=== PATIENT | female | born 1955 | race Caucasian/White ===

== ENCOUNTER 2016-10-14 06:03 | Day surgery (SDC) | payer BC ==
[~2016-10-14 06:03] MED LIST: Lactated Ringers 1,000 ML IV SCH
[2016-10-14] MEDS ORDERED: DIPRIVAN 200 MG/20 ML IV ONE (06:04)
[2016-10-14] MEDS ORDERED: Versed 2 MG/2 ML Injection IV ONE (06:04)
[2016-10-14 06:22] VITALS: O2SAT 98
[2016-10-14 08:21] VITALS: BP 122/58; PULSE 58
--- NOTE | 2016-10-14 08:42 | OP ---
SURGERY DATE/TIME: 10/14/2016 0658 PREOPERATIVE DIAGNOSIS: Screening colonoscopy. POSTOPERATIVE DIAGNOSES: 1) Normal colon. 2) External hemorrhoids. PROCEDURE: Colonoscopy. SURGEON: Austin Kurtz M.D. ANESTHESIA: MAC by Poli Luna CRNA. ESTIMATED BLOOD LOSS: None. SPECIMENS: None. DESCRIPTION OF PROCEDURE: After informed written consent was obtained, the patient was taken to the endoscopy suite. She underwent monitored anesthesia and digital rectal exam showed external hemorrhoids with no internal lesions and normal sphincter tone. The scope was inserted into the rectum and sequentially the entire colonic mucosa was traversed. The level of cecum was reached and verified with direct visualization of ileocecal valve. Upon withdrawal careful mucosal inspection revealed no gross abnormalities. Prep was noted to be fair. Prior to withdrawal retroflexion was performed and showed no internal lesions. The scope was removed and the patient was transferred to the recovery room in excellent condition.
== END 2016-10-14 08:31 | disposition home or self-care (01) ==
LOC: SDC 06:03
PROVIDERS: ATTEND Family Medicine
PROC: 0DJD8ZZ Inspection of Lower Intestinal Tract, Via Natural or Artificial Opening Endoscopic (ICD-10-PCS; principal; 2016-10-14)
DX: Z12.11 Encounter for screening for malignant neoplasm of colon (principal); K64.4 Residual hemorrhoidal skin tags
CPT/HCPCS: 00810; G0121; J2250; J2704

== ENCOUNTER 2020-01-16 18:18 | Emergency (ER) | payer OTHER ==
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
[2020-01-16 20:30] VITALS: BP 171/73; PULSE 61; O2SAT 97
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
== END 2020-01-16 20:33 | disposition home or self-care (01) ==
LOC: ED 18:18
DX: S09.90XA Unspecified injury of head, initial encounter (principal); V89.2XXA Person injured in unspecified motor-vehicle accident, traffic, initial encounter; Y92.89 Other specified places as the place of occurrence of the external cause; Y99.8 Other external cause status; Z79.899 Other long term (current) drug therapy; F41.9 Anxiety disorder, unspecified; F32.9 Major depressive disorder, single episode, unspecified
CPT/HCPCS: 70450; 99284

== ENCOUNTER 2020-06-14 16:26 | Emergency (ER) | payer OTHER ==
--- NOTE | 2020-06-14 16:36 | ERPHSYRPT ---
- History of Present Illness Source: patient, family Exam Limitations: no limitations Patient Subjective Stated Complaint: patient states she was in [place] and her R side "went numb and throat went numb and couldnt breathe." states this has happened before and she was "having little seizures and little strokes" which was 3 years ago and has not had them since Triage Nursing Assessment: Patient presents to ER having weakness on the R side. Patient is pale and states she is in pain in her throat and jaw rating it a 5. Timing/Duration: today Severity: mild Character of Deficits: none Deficits: no difficulties Baseline/Normal Cognition: alert oriented x 3 Current Cognition: alert oriented x 3 Baseline Gait: walks w/o assistance Associated Symptoms: paresthesia (Right side briefly. Resolved prior to arrival to the emergency department) Hx Tetanus, Diphtheria Vaccination/Date Given: Yes Hx Influenza Vaccination/Date Given: Yes Hx Pneumococcal Vaccination/Date Given: No - History of Present Illness Time Seen by Provider: 06/14/20 16:36 Physician History: This is a 64-year-old white female who presents with sudden onset of right side numbness including her throat. She felt anxious and briefly felt as though she could not breathe because of the numbness in her throat. This resolved suddenly. However she still felt that she had generalized weakness but the right side was worse than the left. Patient has had a history of old bilateral lacunar infarcts based on a CAT scan that was done on 01/16/2020. Patient also had a similar episode 3 years ago and had an extensive work-up at [facility] and, per patient report, nothing was found as an underlying cause. Patient has chronic visual problems including seeing spots which she sees today and has been told that she may have glaucoma. She has an appointment to see an manager occupational. Denies headache. She denies head injury. Patient has never been diagnosed with hypertension although in looking back at old chart she has had blood pressures that are elevated. (REECE ANDREWS) Allergies/Adverse Reactions: No Known Drug Allergies Allergy (Verified 01/16/20 18:58) Home Medications: Duloxetine HCl 30 mg [Cymbalta 30 MG Capsule] 60 mg PO DAILY 09/16/13 [History] Cetirizine HCl [Zyrtec] 10 mg PO HS 05/19/14 [History] Fexofenadine/Pseudoephedrine [Ryann-D 24 Hour Tablet] 1 each PO DAILY 10/13/16 [History] Metformin HCl 500 mg [Glucophage 500 MG] 500 mg PO DAILY 10/13/16 [History] Triamcinolone Acetonide [Nasacort] 10.8 ml NS DAILY 10/13/16 [History] Montelukast Sodium 10 mg [Singulair 10 MG] 10 mg PO 06/14/20 [History] Tizanidine HCl 4 mg [Zanaflex 4 MG] 4 mg PO TID 06/14/20 [History] Travel Risk - International Travel Have you traveled outside of the country in past 3 weeks: No - Coronavirus Screening Are you exhibiting any of the following symptoms?: No Close contact with a COVID-19 positive Pt in past 14-21 Days: No - Vaccine Status Have you recieved a Covid-19 vaccination: No - Review of Systems Constitutional: Weakness (Generalized but also right side worse than left) Eyes: No Symptoms Ears, Nose, & Throat: Ear Pain (Right) Respiratory: No Symptoms Cardiac: No Symptoms Abdominal/Gastrointestinal: No Symptoms Genitourinary Symptoms: No Symptoms Musculoskeletal: No Symptoms Skin: No Symptoms Neurological: No Symptoms Psychological: No Symptoms Endocrine: No Symptoms Hematologic/Lymphatic: No Symptoms Immunological/Allergic: No Symptoms All Other Systems: Reviewed and Negative - Past Medical History Pertinent Past Medical History: Yes Neurological History: No Pertinent History ENT History: No Pertinent History Cardiac History: Arrhythmia Respiratory History: No Pertinent History Endocrine Medical History: Diabetes Type II Musculoskeletal History: Arthritis, Degenerative Disk Disease GI Medical History: GERD, Gallbladder Disease History: No Pertinent History Psycho-Social History: Anxiety, Depression Female Reproductive Disorders: No Pertinent History Other Medical History: Possible old CVA reported but states that it was never documented. - Past Surgical History Past Surgical History: Yes Neuro Surgical History: No Pertinent History Cardiac: No Pertinent History Respiratory: No Pertinent History Gastrointestinal: Cholecystectomy Genitourinary: No Pertinent History Musculoskeletal: Orthopedic Surgery Female Surgical History: Hysterectomy, Tubal Ligation, Lumpectomy Other Surgical History: eye surgery lasik bilat. heel spurs. bilat rotator cuff shoulders. L x2 - Social History Smoking Status: Never smoker Exposure to second hand smoke: No Drug Use: none Patient Lives Alone: No - Female History Hx Now: No - [place] Coma Scale Best Eye Response ([place]): (4) open spontaneously Best Verbal Response ([place]): (5) oriented Best Motor Response ([place]): (6) obeys commands [place] Total: 15 - Physical Exam General Appearance: no apparent distress, alert, anxiety, obese Eye Exam: bilateral eye: normal inspection, PERRL, EOMI Ears, Nose, Throat Exam: normal ENT inspection, TMs normal, pharynx normal, moist mucous membranes Neck Exam: normal inspection, non-tender, supple, full range of motion Respiratory: normal breath sounds, lungs clear, airway intact, No chest tenderness, No respiratory distress Cardiovascular: regular rate/rhythm, normal heart sounds, normal peripheral pulses Gastrointestinal: soft, normal bowel sounds, No tenderness Pelvic Exam: not done Rectal Exam: not done Back Exam: normal inspection, normal range of motion, No CVA tenderness, No vertebral tenderness Extremity Exam: normal inspection, normal range of motion, pelvis stable Mental Status: alert, oriented x 3, 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 Exam: normal hearing, normal speech, PERRL, tongue midline Coordination/Gait: normal finger to nose, normal gait, normal cerebellar function Motor/Sensory: no motor deficit, no sensory deficit Skin Exam: normal color, warm, dry SpO2 Interpretation: normal SpO2: 100 O2 Delivery: Room Air - Nursing Vital Signs Nursing Vital Signs: Initial Vital Signs Temperature 98.2 F 06/14/20 16:28 Pulse Rate 79 06/14/20 16:28 Respiratory Rate 24 06/14/20 16:28 Blood Pressure 182/111 06/14/20 16:28 O2 Sat by Pulse Oximetry 100 06/14/20 16:28 Pain Scale Pain Intensity 3 - Course Nursing assessment & vital signs reviewed: Yes EKG Interpreted by Me: RATE (78), Sinus Rhythm, NORMAL AXIS, NORMAL INTERVALS, NORMAL QRS, NORMAL ST-T, Other (No acute ischemic changes on today's EKG. There are no comparison EKGs available.) Ordered Tests: Active Orders 24 hr Category Date Time Status Outer Diameter Technician STAT Care 06/14/20 16:38 Active EKG-ER Only STAT Care 06/14/20 16:38 Active IV Insertion STAT Care 06/14/20 16:37 Active NPO (ED) STAT Care 06/14/20 16:52 Active POCT Glucose Check STAT Care 06/14/20 16:38 Active Pulse Oximetry (ED) STAT Care 06/14/20 16:52 Active HEAD WITHOUT CONTRAST [CT] Stat Exams 06/14/20 16:35 Taken BLOOD CULTURE Stat Lab 06/14/20 17:15 Received CBC W DIFF Stat Lab 06/14/20 16:55 Completed CMP Stat Lab 06/14/20 16:55 Completed PROTIME WITH INR Stat Lab 06/14/20 16:55 Completed TROPONIN Q3H Lab 06/14/20 16:55 Completed TROPONIN Q3H Lab 06/14/20 20:00 Ordered TROPONIN Q3H Lab 06/14/20 23:00 Ordered TROPONIN Q3H Lab 06/15/20 02:00 Ordered TROPONIN Q3H Lab 06/15/20 05:00 Ordered UA W/RFX UR CULTURE Stat Lab 06/14/20 18:12 Completed Medication Summary Generic Name Dose Route Start Last Admin Trade Name Freq PRN Reason Stop Dose Admin Sodium Chloride 1,000 mls @ 100 mls/hr 06/14/20 17:00 06/14/20 18:11 Sodium Chloride 0.9% 1000 Ml IV 07/14/20 16:59 100 mls/hr .Q10H MART Administration Discontinued Medications Generic Name Dose Route Start Last Admin Trade Name Freq PRN Reason Stop Dose Admin Clonidine 0.1 mg 06/14/20 18:52 06/14/20 19:15 Catapres 0.1 Mg PO 06/14/20 18:53 0.1 mg STAT ONE Administration Clonidine Confirm 06/14/20 19:10 Catapres 0.1 Mg Administered 06/14/20 19:11 Dose 0.1 mg .ROUTE .STK-MED ONE Lab/Rad Data: Laboratory Result Diagrams 06/14/20 16:55 06/14/20 16:55 Laboratory Results 06/14/20 06/14/20 06/14/20 Range/Units 18:12 17:00 16:55 WBC (4.0-10.5) K/mm3 RBC (4.1-5.4) M/mm3 Hgb (12.0-16.0) gm/dl Hct (35-47) % MCV (78-100) fl MCH (26-32) pg MCHC (32-36) g/dl RDW (11.5-14.0) % Plt Count (150-450) K/mm3 MPV (7.5-11.0) fl Gran % (36.0-66.0) % Eos # (Auto) (0-0.5) Absolute Lymphs (auto) (1.0-4.6) Absolute Monos (auto) (0.0-1.3) Lymphocytes % (24.0-44.0) % Monocytes % (0.0-12.0) % Eosinophils % (0.00-5.0) % Basophils % (0.0-0.4) % Absolute Granulocytes (1.4-6.9) Basophils # (0-0.4) PT (9.95-12.35) SECONDS INR (0.8-3.0) Sodium (137-145) mmol/L Potassium (3.5-5.1) mmol/L Chloride (98-107) mmol/L Carbon Dioxide (22-30) mmol/L Anion Gap (5-15) MEQ/L BUN (7-17) mg/dL Creatinine (0.52-1.04) mg/dL Estimated GFR ML/MIN Glucose (74-106) mg/dL Calcium (8.4-10.2) mg/dL Total Bilirubin (0.2-1.3) mg/dL AST (14-36) U/L ALT (0-35) U/L Alkaline Phosphatase (38-126) U/L Ammonia < 9 L (9-30) umol/L Troponin I < 0.012 (0.000-0.034) ng/mL Serum Total Protein (6.3-8.2) g/dL Albumin (3.5-5.0) g/dL Urine Color YELLOW (YELLOW) Urine Appearance CLEAR (CLEAR) Urine pH 6.0 (5-6) Ur Specific Dalton 1.009 (1.005-1.025) Urine Protein NEGATIVE (Negative) Urine Ketones NEGATIVE (NEGATIVE) Urine Blood NEGATIVE (0-5) Malachi/ul Urine Nitrite NEGATIVE (NEGATIVE) Urine Bilirubin NEGATIVE (NEGATIVE) Urine Urobilinogen NEGATIVE (0-1) mg/dL Ur Leukocyte Esterase NEGATIVE (NEGATIVE) Urine WBC (Auto) NONE (0-5) /HPF Urine RBC (Auto) NONE (0-2) /HPF U Epithel Cells (Auto) NONE (FEW) /HPF Urine Bacteria (Auto) NONE (NEGATIVE) /HPF Urine Mucus (Auto) SLIGHT (NEGATIVE) /HPF Urine Culture Reflexed NO (NO) Urine Glucose NEGATIVE (NEGATIVE) mg/dL 06/14/20 06/14/20 06/14/20 Range/Units 16:55 16:55 16:55 WBC 6.6 (4.0-10.5) K/mm3 RBC 4.41 (4.1-5.4) M/mm3 Hgb 11.4 L (12.0-16.0) gm/dl Hct 38.1 (35-47) % MCV 86.4 (78-100) fl MCH 25.9 L (26-32) pg MCHC 29.9 L (32-36) g/dl RDW 15.4 H (11.5-14.0) % Plt Count 352 (150-450) K/mm3 MPV 10.2 (7.5-11.0) fl Gran % 48.8 (36.0-66.0) % Eos # (Auto) 0.50 (0-0.5) Absolute Lymphs (auto) 2.34 (1.0-4.6) Absolute Monos (auto) 0.52 (0.0-1.3) Lymphocytes % 35.4 (24.0-44.0) % Monocytes % 7.9 (0.0-12.0) % Eosinophils % 7.6 H (0.00-5.0) % Basophils % 0.3 (0.0-0.4) % Absolute Granulocytes 3.23 (1.4-6.9) Basophils # 0.02 (0-0.4) PT 12.1 (9.95-12.35) SECONDS INR 1.07 (0.8-3.0) Sodium 141 (137-145) mmol/L Potassium 3.9 (3.5-5.1) mmol/L Chloride 104 (98-107) mmol/L Carbon Dioxide 29 (22-30) mmol/L Anion Gap 12.2 (5-15) MEQ/L BUN 9 (7-17) mg/dL Creatinine 1.18 H (0.52-1.04) mg/dL Estimated GFR 49.0 ML/MIN Glucose 122 H (74-106) mg/dL Calcium 9.9 (8.4-10.2) mg/dL Total Bilirubin 0.30 (0.2-1.3) mg/dL AST 28 (14-36) U/L ALT 16 (0-35) U/L Alkaline Phosphatase 91 (38-126) U/L Ammonia (9-30) umol/L Troponin I (0.000-0.034) ng/mL Serum Total Protein 6.9 (6.3-8.2) g/dL Albumin 4.2 (3.5-5.0) g/dL Urine Color (YELLOW) Urine Appearance (CLEAR) Urine pH (5-6) Ur Specific Dalton (1.005-1.025) Urine Protein (Negative) Urine Ketones (NEGATIVE) Urine Blood (0-5) Malachi/ul Urine Nitrite (NEGATIVE) Urine Bilirubin (NEGATIVE) Urine Urobilinogen (0-1) mg/dL Ur Leukocyte Esterase (NEGATIVE) Urine WBC (Auto) (0-5) /HPF Urine RBC (Auto) (0-2) /HPF U Epithel Cells (Auto) (FEW) /HPF Urine Bacteria (Auto) (NEGATIVE) /HPF Urine Mucus (Auto) (NEGATIVE) /HPF Urine Culture Reflexed (NO) Urine Glucose (NEGATIVE) mg/dL - Progress Progress: improved, re-examined Counseled pt/family regarding: lab results, diagnosis, need for follow-up, rad results - Progress Progress Note: 06/14/20 17:57 CAT scan of the head without contrast shows continued negative acute intracranial abnormality. Again, there is incidental bilateral basal ganglia lacunar infarcts when compared to CT scan of head dated 01/16/2020 06/14/20 19:00 I signed out this patient to Dr. Hardin at shift change. I reviewed the labs that are pending and he will follow up and make final disposition. And (REECE ANDREWS) - Departure Departure Disposition: Home Critical Care Time: No - Departure Clinical Impression: Weakness, Hypertension Condition: Stable Referrals: KIMBERLY CARR NP [Primary Care Provider] - Additional Instructions: Take your medication as prescribed. Keep a daily log (3 times a day) of your blood pressure. Call your primary care physician on 06/17/2020 to discuss further management of your blood pressure. Make them aware that you are taking hydrochlorothiazide 25 mg prescription 1 time a day that you received from the emergency department. Return to the emergency department if your symptoms recur. Prescriptions: Hydrochlorothiazide 25 mg [hydroDIURIL 25 MG] 25 mg PO DAILY #10 tablet
[2020-06-14 16:58] LABS: Absolute Neutrophil Ct (ANC) 3.23 (1.4-6.9); BASOPHIL % 0.3 % (0.0-0.4); Basophil (Absolute #) 0.02 (0-0.4); Eosinophil % 7.6 % (0.00-5.0); Hematocrit 38.1 % (35-47); Hemoglobin 11.4 gm/dl (12.0-16.0); Lymphocyte (Absolute #) 2.34 (1.0-4.6); Lymphocytes % 35.4 % (24.0-44.0); Mean Cell Volume 86.4 fl (78-100); Mean Corpuscular Hemoglobin 25.9 pg (26-32); Mean Corpuscular Hgb Concent. 29.9 g/dl (32-36); Mean Platelet Volume 10.2 fl (7.5-11.0); Monocyte (Absolute #) 0.52 (0.0-1.3); Monocytes % 7.9 % (0.0-12.0); Neutrophil % 48.8 % (36.0-66.0); Platelet Count 352 K/mm3 (150-450); Red Blood Count 4.41 M/mm3 (4.1-5.4); Red Cell Distribution Width 15.4 % (11.5-14.0); White Blood Count 6.6 K/mm3 (4.0-10.5)
[2020-06-14 17:00] LABS: INR 1.07 (0.8-3.0); PROTIME 12.1 SECONDS (9.95-12.35)
[2020-06-14] MEDS ORDERED: Sodium Chloride 0.9% 1000 ML 1,000 ML IV SCH (17:00)
[2020-06-14 17:05] LABS: ALBUMIN 4.2 g/dL (3.5-5.0); ANION GAP 12.2 MEQ/L (5-15); BILIRUBIN,TOTAL 0.3 mg/dL (0.2-1.3); Calcium 9.9 mg/dL (8.4-10.2); Creatinine 1 1.18 mg/dL (0.52-1.04); Potassium 3.9 mmol/L (3.5-5.1); Total Protein 6.9 g/dL (6.3-8.2)
[2020-06-14] MEDS ORDERED: Sodium Chloride 0.9% 1000 ML 1,000 ML ONE (18:11)
[2020-06-14] MEDS ORDERED: Catapres 0.1 MG PO ONE (18:52)
[2020-06-14] MEDS ORDERED: Catapres 0.1 MG ONE (19:10)
[2020-06-14 19:17] LABS: Appearance CLEAR (CLEAR); Bilirubin NEGATIVE (NEGATIVE); Blood NEGATIVE Ery/ul (0-5); Glucose NEGATIVE (NEGATIVE); Ketones NEGATIVE (NEGATIVE); Leukocyte Esterase NEGATIVE (NEGATIVE); Mucus SLIGHT /HPF (NEGATIVE); Nitrite NEGATIVE (NEGATIVE); Protein,Urine Dip NEGATIVE (Negative); Specific Gravity 1.009 (1.005-1.025); Urobilinogen NEGATIVE mg/dL (0-1)
[2020-06-14 19:51] VITALS: BP 169/81; PULSE 76; O2SAT 97
--- NOTE | 2020-06-14 23:04 | XRAY ---
Indication: Right-sided weakness. Stroke. History of TIAs. Multiple contiguous axial images obtained through the head without contrast. Comparison: January 16, 2020. Ventriculosulcal pattern remains symmetric. Stable tiny bilateral basal ganglia remote lacunar infarcts. No acute intracranial hemorrhage, abnormal extra-axial fluid collection, or mass effect. Fourth ventricle is midline without hydrocephalus. Eli-white matter differentiation preserved. Bony calvarium intact. Visualized paranasal sinuses and mastoid air cells are clear. Impression: Stable tiny bilateral basal ganglia remote lacunar infarcts. No new or acute intracranial abnormalities.
== END 2020-06-14 19:54 | disposition home or self-care (01) ==
LOC: ED 16:26
DX: R53.1 Weakness (principal); I10 Essential (primary) hypertension; R20.0 Anesthesia of skin; Z79.899 Other long term (current) drug therapy; E11.9 Type 2 diabetes mellitus without complications; Z79.4 Long term (current) use of insulin; K21.9 Gastro-esophageal reflux disease without esophagitis; Z86.73 Personal history of transient ischemic attack (TIA), and cerebral infarction without residual deficits; Z87.898 Personal history of other specified conditions
CPT/HCPCS: 36000; 36415; 70450; 80053; 81001; 82140; 84484; 85025; 85610; 87040; 93005; 93041; 94760; 96360; 99284; A9270-GY

== ENCOUNTER 2021-04-04 14:08 | Emergency (ER) | payer MEDICARE, OTHER ==
--- NOTE | 2021-04-04 14:10 | ERPHSYRPT ---
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 She states that it radiates to the left shoulder then stops, into her back then stops then it radiates up into the neck then radiates into the epigastric area. She currently states that the pain is localized to the substernal, central area. The pain is much improved. Patient has no history of myocardial infarction. She has no known history of coronary artery disease. She states she is under a lot of stress at this time. She is a [id number] diabetic with gastroesophageal reflux disease and degenerative disc disease. Also, she has a history of anxiety. She thinks this is more of an anxiety and stress related issue but because of the sudden onset of the pain she thought she would come in and be evaluated. Timing/Duration: today Activities at Onset: none Quality: tightness Location: substernal, central Chest Pain Radiation: neck, arm, back Severity of Pain-Max: moderate Severity of Pain-Current: mild Modifying Factors: Improves With: nothing Associated Symptoms: denies symptoms Prior Chest Pain/Cardiac Workup: no prior chest pain, no prior cardiac workup Nitro Today/Relief: no nitro taken today Aspirin Treatment Today: 81 mg x 4, provided by ED Allergies/Adverse Reactions: No Known Drug Allergies Allergy (Verified 04/04/21 14:11) Home Medications: Duloxetine HCl 30 mg [Cymbalta 30 MG Capsule] 60 mg PO DAILY 09/16/13 [History] Cetirizine HCl [Zyrtec] 10 mg PO HS 05/19/14 [History] Fexofenadine/Pseudoephedrine [Ryann-D 24 Hour Tablet] 1 each PO DAILY 10/13/16 [History] Metformin HCl 500 mg [Glucophage 500 MG] 500 mg PO DAILY 10/13/16 [History] Triamcinolone Acetonide [Nasacort] 10.8 ml NS DAILY 10/13/16 [History] Montelukast Sodium 10 mg [Singulair 10 MG] 10 mg PO 06/14/20 [History] Tizanidine HCl 4 mg [Zanaflex 4 MG] 4 mg PO TID 06/14/20 [History] Hx Tetanus, Diphtheria Vaccination/Date Given: Yes Hx Influenza Vaccination/Date Given: Yes Hx Pneumococcal Vaccination/Date Given: No Travel Risk - International Travel Have you traveled outside of the country in past 3 weeks: No - Coronavirus Screening Are you exhibiting any of the following symptoms?: No Close contact with a COVID-19 positive Pt in past 14-21 Days: No - Vaccine Status Have you recieved a Covid-19 vaccination: No - Review of Systems Constitutional: No Symptoms Eyes: No Symptoms Ears, Nose, & Throat: No Symptoms Respiratory: No Symptoms, Cough Cardiac: No Symptoms Abdominal/Gastrointestinal: No Symptoms Genitourinary Symptoms: No Symptoms Musculoskeletal: No Symptoms Skin: No Symptoms Neurological: No Symptoms Psychological: No Symptoms Endocrine: No Symptoms Hematologic/Lymphatic: No Symptoms Immunological/Allergic: No Symptoms All Other Systems: Reviewed and Negative - Past Medical History Pertinent Past Medical History: Yes Neurological History: No Pertinent History ENT History: No Pertinent History Cardiac History: No Pertinent History Respiratory History: No Pertinent History Endocrine Medical History: No Pertinent History Musculoskeletal History: Osteoarthritis GI Medical History: GERD, Gallbladder Disease History: No Pertinent History Psycho-Social History: Anxiety, Depression Female Reproductive Disorders: No Pertinent History Other Medical History: R SIDED BODY GOING NUMB. B SHOULDER SURGERY - Past Surgical History Past Surgical History: Yes Neuro Surgical History: No Pertinent History Cardiac: No Pertinent History Respiratory: No Pertinent History Gastrointestinal: Cholecystectomy Genitourinary: No Pertinent History Musculoskeletal: Orthopedic Surgery Female Surgical History: Hysterectomy, Tubal Ligation, Lumpectomy Other Surgical History: eye surgery lasik bilat. heel spurs. bilat rotator cuff shoulders. L x2 - Social History Smoking Status: Never smoker Exposure to second hand smoke: No Drug Use: none Patient Lives Alone: No - Nursing Vital Signs Nursing Vital Signs: Initial Vital Signs Temperature 97.8 F 04/04/21 14:11 Pulse Rate 75 04/04/21 14:11 Respiratory Rate 18 04/04/21 14:11 Blood Pressure 170/95 04/04/21 14:11 O2 Sat by Pulse Oximetry 100 04/04/21 14:11 Pain Scale Pain Intensity 4 - Physical Exam General Appearance: no apparent distress, alert, anxiety Eye Exam: PERRL/EOMI, eyes nml inspection Ears, Nose, Throat Exam: normal ENT inspection, moist mucous membranes Neck Exam: normal inspection, non-tender, supple, full range of motion Respiratory Exam: normal breath sounds, chest tenderness, lungs clear, airway intact, No respiratory distress Cardiovascular Exam: regular rate/rhythm, normal heart sounds, normal peripheral pulses Gastrointestinal/Abdomen Exam: soft, normal bowel sounds, No tenderness Pelvic Exam: not done Rectal Exam: not done Back Exam: normal inspection, normal range of motion, No CVA tenderness, No vertebral tenderness Extremity Exam: normal inspection, normal range of motion, pelvis stable Neurologic Exam: alert, oriented x 3, 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 There are no changes when compared to EKG dated 06/14/2020) Ordered Tests: Active Orders 24 hr Category Date Time Status EKG-ER Only STAT Care 04/04/21 14:23 Active IV Insertion STAT Care 04/04/21 14:23 Active Pulse Oximetry (ED) STAT Care 04/04/21 14:23 Active CHEST 1 VIEW (PORTABLE) Stat Exams 04/04/21 14:24 Completed CHEST WITH CONTRAST [CT] Stat Exams 04/04/21 15:18 Completed CBC W DIFF Stat Lab 04/04/21 14:21 Completed CMP Stat Lab 04/04/21 14:21 Completed D-DIMER QUANTITATIVE Stat Lab 04/04/21 14:21 Completed NT PRO BNP Stat Lab 04/04/21 14:21 Completed PROTIME WITH INR Stat Lab 04/04/21 14:21 Completed TROPONIN Q3H Lab 04/04/21 14:21 Completed TROPONIN Q3H Lab 04/04/21 17:30 Ordered TROPONIN Q3H Lab 04/04/21 20:30 Ordered TROPONIN Q3H Lab 04/04/21 23:30 Ordered TROPONIN Q3H Lab 04/05/21 02:30 Ordered Medication Summary Discontinued Medications Generic Name Dose Route Start Last Admin Trade Name Freq PRN Reason Stop Dose Admin Aspirin 324 mg 04/04/21 14:23 04/04/21 14:37 Aspirin 81 Mg Tab.Chew PO 04/04/21 14:24 324 mg STAT ONE Administration Aspirin Confirm 04/04/21 14:31 Aspirin 81 Mg Tab.Chew Administered 04/04/21 14:32 Dose 324 mg .ROUTE .STK-MED ONE Sodium Chloride 500 mls @ 500 mls/hr 04/04/21 15:18 04/04/21 15:27 Sodium Chloride 0.9% 500 Ml IV 04/04/21 16:17 500 mls/hr .Q1H ONE Administration Sodium Chloride Confirm 04/04/21 15:23 Sodium Chloride 0.9% 500 Ml Administered 04/04/21 15:24 Dose 500 mls @ ud IV .STK-MED ONE Lab/Rad Data: Laboratory Result Diagrams 04/04/21 14:21 04/04/21 14:21 Laboratory Results 04/04/21 04/04/21 04/04/21 Range/Units 14:21 14:21 14:21 WBC (4.0-10.5) K/mm3 RBC (4.1-5.4) M/mm3 Hgb (12.0-16.0) gm/dl Hct (35-47) % MCV (78-100) fl MCH (26-32) pg MCHC (32-36) g/dl RDW (11.5-14.0) % Plt Count (150-450) K/mm3 MPV (7.5-11.0) fl Gran % (36.0-66.0) % Eos # (Auto) (0-0.5) Absolute Lymphs (auto) (1.0-4.6) Absolute Monos (auto) (0.0-1.3) Lymphocytes % (24.0-44.0) % Monocytes % (0.0-12.0) % Eosinophils % (0.00-5.0) % Basophils % (0.0-0.4) % Absolute Granulocytes (1.4-6.9) Basophils # (0-0.4) PT 11.6 (9.4-12.5) SECONDS INR 0.98 (0.8-3.0) D-Dimer 1238 H* (215-500) ng/mL Sodium 139 (137-145) mmol/L Potassium 4.0 (3.5-5.1) mmol/L Chloride 103 (98-107) mmol/L Carbon Dioxide 26 (22-30) mmol/L Anion Gap 13.5 (5-15) MEQ/L BUN 8 (7-17) mg/dL Creatinine 1.13 H (0.52-1.04) mg/dL Estimated GFR 51.4 ML/MIN Glucose 92 (74-106) mg/dL Calcium 9.8 (8.4-10.2) mg/dL Total Bilirubin 0.70 (0.2-1.3) mg/dL AST 35 (14-36) U/L ALT 23 (0-35) U/L Alkaline Phosphatase 119 (38-126) U/L Troponin I < 0.012 (0.000-0.034) ng/mL NT-Pro-B Natriuret Pep 33.2 (0-900) pg/mL Serum Total Protein 7.4 (6.3-8.2) g/dL Albumin 4.4 (3.5-5.0) g/dL 04/04/21 Range/Units 14:21 WBC 5.7 (4.0-10.5) K/mm3 RBC 4.50 (4.1-5.4) M/mm3 Hgb 13.2 (12.0-16.0) gm/dl Hct 42.2 (35-47) % MCV 93.8 (78-100) fl MCH 29.3 (26-32) pg MCHC 31.3 L (32-36) g/dl RDW 14.6 H (11.5-14.0) % Plt Count 300 (150-450) K/mm3 MPV 10.9 (7.5-11.0) fl Gran % 47.6 (36.0-66.0) % Eos # (Auto) 0.25 (0-0.5) Absolute Lymphs (auto) 2.23 (1.0-4.6) Absolute Monos (auto) 0.48 (0.0-1.3) Lymphocytes % 39.1 (24.0-44.0) % Monocytes % 8.4 (0.0-12.0) % Eosinophils % 4.4 (0.00-5.0) % Basophils % 0.5 (0.0-0.4) % Absolute Granulocytes 2.71 (1.4-6.9) Basophils # 0.03 (0-0.4) PT (9.4-12.5) SECONDS INR (0.8-3.0) D-Dimer (215-500) ng/mL Sodium (137-145) mmol/L Potassium (3.5-5.1) mmol/L Chloride (98-107) mmol/L Carbon Dioxide (22-30) mmol/L Anion Gap (5-15) MEQ/L BUN (7-17) mg/dL Creatinine (0.52-1.04) mg/dL Estimated GFR ML/MIN Glucose (74-106) mg/dL Calcium (8.4-10.2) mg/dL Total Bilirubin (0.2-1.3) mg/dL AST (14-36) U/L ALT (0-35) U/L Alkaline Phosphatase (38-126) U/L Troponin I (0.000-0.034) ng/mL NT-Pro-B Natriuret Pep (0-900) pg/mL Serum Total Protein (6.3-8.2) g/dL Albumin (3.5-5.0) g/dL - Progress Progress: improved Air Movement: good Progress Note: 04/04/21 14:54 Chest x-ray shows no acute cardiopulmonary process. 04/04/21 16:[address] with contrast shows no pulmonary embolus. There is no acute cardiopulmonary process. 04/04/21 16:44 At the time of discharge patient has no chest pain and no shortness of breath. She desires to go home. Blood Culture(s) Obtained: No Antibiotics given: No Counseled pt/family regarding: lab results, diagnosis, need for follow-up, rad results - Departure Departure Disposition: Home Clinical Impression: Chest pain, non-cardiac Condition: Stable Critical Care Time: No Referrals: KIMBERLY CARR NP [NON-STAFF PHY W/O PRIVILEGES] - Follow up/PCP as directed Additional Instructions: Take all your medication as prescribed. Follow-up with your primary care physician for further evaluation and management including cardiac stress test if indicated or referral to tooth cutter spur.
[2021-04-04 14:21] VITALS: O2SAT 100
[2021-04-04] MEDS ORDERED: BABY ASPIRIN 81 MG CHEW PO ONE (14:23)
[2021-04-04] MEDS ORDERED: BABY ASPIRIN 81 MG CHEW ONE (14:31)
[2021-04-04 14:52] LABS: Absolute Neutrophil Ct (ANC) 2.71 (1.4-6.9); Basophil (Absolute #) 0.03 (0-0.4); Eosinophil % 4.4 % (0.00-5.0); Eosinophil (Absolute #) 0.25 (0-0.5); Hematocrit 42.2 % (35-47); Hemoglobin 13.2 gm/dl (12.0-16.0); Lymphocyte (Absolute #) 2.23 (1.0-4.6); Lymphocytes % 39.1 % (24.0-44.0); Mean Cell Volume 93.8 fl (78-100); Mean Corpuscular Hemoglobin 29.3 pg (26-32); Mean Corpuscular Hgb Concent. 31.3 g/dl (32-36); Mean Platelet Volume 10.9 fl (7.5-11.0); Monocyte (Absolute #) 0.48 (0.0-1.3); Monocytes % 8.4 % (0.0-12.0); Neutrophil % 47.6 % (36.0-66.0); Platelet Count 300 K/mm3 (150-450); Red Cell Distribution Width 14.6 % (11.5-14.0); White Blood Count 5.7 K/mm3 (4.0-10.5)
--- NOTE | 2021-04-04 14:52 | XRAY ---
Exam: AP upright portable chest film from 04/04/2021. Comparison: AP portable chest film from 05/19/2014. Indication: 65-year-old female with chest pain that began today. Findings: The heart size and contour are normal. The pauly and mediastinal structures appear unremarkable. The level of inspiration is adequate. No air space infiltrates, vascular congestion, pneumothorax, or pleural fluid is seen. A mild undulating contour of both hemidiaphragmatic surfaces is seen representing no change. A small radiopaque fastener device overlies the right humeral head. No acute osseous process is seen. The left acromioclavicular joint space appears slightly widened, perhaps due to partial excision of the lateral end of the left clavicle in the past. This is unchanged. Impression: 1. No acute cardiopulmonary process is seen, no change from 05/19/2014.
[2021-04-04 14:57] LABS: INR 0.98 (0.8-3.0); PROTIME 11.6 SECONDS (9.4-12.5)
[2021-04-04 15:12] LABS: ALBUMIN 4.4 g/dL (3.5-5.0); ANION GAP 13.5 MEQ/L (5-15); BILIRUBIN,TOTAL 0.7 mg/dL (0.2-1.3); Calcium 9.8 mg/dL (8.4-10.2); Creatinine 1 1.13 mg/dL (0.52-1.04); EST GLOMERULAR FILTRATION RATE 51.4 ML/MIN; NT PRO BNP 33.2 pg/mL (0-900); Total Protein 7.4 g/dL (6.3-8.2)
[2021-04-04] MEDS ORDERED: Sodium Chloride 0.9% 500 ML 500 ML IV ONE ×2 (15:18→15:23)
[2021-04-04 16:23] VITALS: BP 142/83; PULSE 77
--- NOTE | 2021-04-04 16:38 | XRAY ---
Exam: CT of the chest with IV contrast from 04/04/2021. CTDI: 14.61 mGy Comparison: AP upright portable chest film from 04/04/2021. Indication: 65-year-old female with elevated d-dimer; chest pain. History of positive covid-19 several weeks ago. Technique: Post-IV contrast axial images were obtained through the chest during automated injection of 100 cc of Isovue 370 contrast material using the PE protocol. Findings: There is excellent opacification of the pulmonary arterial tree. No filling defects are seen to suggest pulmonary emboli. The thoracic aorta appears of normal diameter without evidence of dissection. Mild atherosclerotic vascular calcification is seen within the distal descending thoracic aorta and proximal abdominal aorta. The remainder of the pauly and mediastinal structures appears unremarkable. Specifically, no abnormal mediastinal or perihilar lymphadenopathy is seen. The heart size is normal without pericardial effusion. The lungs are well expanded and are clear except for some minimal posterior dependent atelectatic changes at both lung bases. No pneumothorax or pleural effusion is seen. No abnormal soft tissue lung nodularity is seen. There appears to be some mild diffuse hepatic steatosis. Surgical clips consistent with prior cholecystectomy are noted within the right upper quadrant. Patchy uptake is seen within the spleen to the due to the timing of the imaging relative to the IV contrast administration. The skeleton reveals no acute fracture or aggressive bone lesion. Mild vertebral endplate spurring is seen within the visualized spine on the sagittal images. Impression: 1. No CT evidence of acute pulmonary embolism is seen. Neither do I detect evidence of a thoracic aortic aneurysm or thoracic aortic dissection. 2. No other evidence of active cardiopulmonary disease is seen. 3. Hepatic steatosis and evidence of prior cholecystectomy are seen.
== END 2021-04-04 16:58 | disposition home or self-care (01) ==
LOC: ED 14:08
DX: R07.89 Other chest pain (principal); E11.9 Type 2 diabetes mellitus without complications; Z79.84 Long term (current) use of oral hypoglycemic drugs; K21.9 Gastro-esophageal reflux disease without esophagitis; F41.9 Anxiety disorder, unspecified; Z79.899 Other long term (current) drug therapy
CPT/HCPCS: 36000; 36415; 71045; 71260; 80053; 83880; 84484; 85025; 85379; 85610; 93005; 94760; 96360; 99284; A9270-GY

== ENCOUNTER 2023-01-21 12:28 | Emergency (ER) | payer MEDICARE ==
--- NOTE | 2023-01-21 12:42 | ERPHSYRPT ---
- History of Present Illness Time Seen by Provider: 01/21/23 12:42 Source: patient Exam Limitations: no limitations Physician History: This is a 67-year-old white female patient who was at home 2 weeks ago and broke a glass vase. She thought she had all the glass cleaned up. However, soon after she was walking and felt as though she stepped on a very tiny piece of glass approximately 2 weeks ago. She has a tender plantar surface left first toe. She has not sought medical evaluation until now. Occurred: other Quality: sharpness (She steps just right), stabbing (When she steps just right) Severity of Pain-Max: mild (To moderate when she hits or steps just right) Severity of Pain-Current: none Lower Extremities Pain: 1st toe: left Associated Symptoms: other (Pain elicited that is sharp and stabbing when she is ambulating and hits that toe just right) Allergies/Adverse Reactions: No Known Drug Allergies Allergy (Verified 04/04/21 14:11) Home Medications: Duloxetine HCl 30 mg [Cymbalta 30 MG Capsule] 90 mg PO DAILY 09/16/13 [History] Cetirizine HCl [Zyrtec] 10 mg PO HS 05/19/14 [History] Fexofenadine/Pseudoephedrine [Ryann-D 24 Hour Tablet] 1 each PO DAILY 10/13/16 [History] Triamcinolone Acetonide [Nasacort] 10.8 ml NS DAILY 10/13/16 [History] Montelukast Sodium 10 mg [Singulair 10 MG] 10 mg PO DAILY 06/14/20 [History] Atorvastatin Calcium 20 mg PO DAILY 01/21/23 [History] Baclofen 10 mg [Lioresal 10 mg] 10 mg PO HS 01/21/23 [History] Diclofenac Sodium 1 ea DAILY 01/21/23 [History] Tirzepatide [Mounjaro] 10 mg SQ UD 01/21/23 [History] Hx Tetanus, Diphtheria Vaccination/Date Given: Yes Hx Influenza Vaccination/Date Given: Yes Hx Pneumococcal Vaccination/Date Given: No Travel Risk - International Travel Have you traveled outside of the country in past 3 weeks: No - Coronavirus Screening Are you exhibiting any of the following symptoms?: No Close contact with a COVID-19 positive Pt in past 14-21 Days: No - Vaccine Status Have you recieved a Covid-19 vaccination: No Mobility Specialist: Moderna - Vaccination Dates Date of 2cond Vaccination (if applicable): January 2021 - Review of Systems Constitutional: No Symptoms Eyes: No Symptoms Ears, Nose, & Throat: No Symptoms Respiratory: No Symptoms Cardiac: No Symptoms Abdominal/Gastrointestinal: No Symptoms Genitourinary Symptoms: No Symptoms Musculoskeletal: Injury Skin: No Symptoms (Left great toe plantar surface) Neurological: No Symptoms Psychological: No Symptoms Endocrine: No Symptoms Hematologic/Lymphatic: No Symptoms - Past Medical History Pertinent Past Medical History: Yes Neurological History: Stroke ENT History: No Pertinent History Cardiac History: High Cholesterol, Hypertension, Other Respiratory History: Bronchitis, Other Endocrine Medical History: No Pertinent History Musculoskeletal History: Osteoarthritis GI Medical History: GERD, Gallbladder Disease History: No Pertinent History Psycho-Social History: Anxiety, Depression Female Reproductive Disorders: No Pertinent History Other Medical History: SX HX: RIGHT ROTATOR CUFF REPAIR, LEFT DECOMPRESSION AND BICEPS DETACHED, SX FOR PLANTAR FASCITIS 1993, CHOLECYSTECTOMY, LASIK FOR EYES, HYSTERECTOMY, CUBITAL AND CARPEL TUNNEL RELEASES 05/30, MRSA IN BACK - CLEANED OUT. - Past Surgical History Past Surgical History: Yes Neuro Surgical History: No Pertinent History Cardiac: No Pertinent History Respiratory: No Pertinent History Gastrointestinal: Cholecystectomy Genitourinary: No Pertinent History Musculoskeletal: Orthopedic Surgery Female Surgical History: Hysterectomy, Tubal Ligation, Lumpectomy Other Surgical History: eye surgery lasik bilat. heel spurs. bilat rotator cuff shoulders. L x2 - Social History Smoking Status: Never smoker Exposure to second hand smoke: No Drug Use: none Patient Lives Alone: No - Nursing Vital Signs Nursing Vital Signs: Initial Vital Signs Temperature 96.3 F 01/21/23 12:45 Pulse Rate 73 01/21/23 12:45 Respiratory Rate 18 01/21/23 12:45 Blood Pressure 164/84 01/21/23 12:45 O2 Sat by Pulse Oximetry 100 01/21/23 12:45 Pain Scale Pain Intensity 0 - Physical Exam General Appearance: no apparent distress, alert, anxiety Eyes, Ears, Nose, Throat Exam: normal ENT inspection, moist mucous membranes Neck Exam: normal inspection, non-tender, supple, full range of motion Cardiovascular/Respiratory Exam: chest non-tender, no respiratory distress Gastrointestinal/Abdominal Exam: non-tender Back Exam: normal inspection, normal range of motion, No CVA tenderness, No vertebral tenderness Hips Exam: bilateral: non-tender, normal inspection, normal range of motion, no evidence of injury Legs Exam: bilateral leg: non-tender, normal inspection, normal range of motion, no evidence of injury Knees Exam: bilateral knee: non-tender, normal inspection, normal range of motion, no evidence of injury Ankle Exam: bilateral ankle: non-tender, normal inspection, normal range of motion, no evidence of injury Foot Exam: right foot: non-tender, normal inspection, other (No evidence of bleeding, cellulitis or), left foot: pain (There appears to be a punctate lesion plantar surface left great toe), bilateral foot: normal range of motion Neuro/Tendon Exam: normal sensation, normal motor functions, normal tendon functions, responds to pain, no evidence tendon injury Mental Status Exam: alert, oriented x 3, cooperative Skin Exam: warm, dry, other (See above) SpO2 Interpretation: normal O2 Delivery: Room Air - Course Nursing assessment & vital signs reviewed: Yes Ordered Tests: Active Orders 24 hr Category Date Time Status FOOT (MINIMUM 3 VIEWS) Stat Exams 01/21/23 13:07 Completed - Progress Progress: unchanged Progress Note: 01/21/23 13:41 This patient's medical issue is 1 of low complexity. The level of complexity and the workup performed is based on review of the patient's past medical history, review of the patient's medication list, review the patient's drug allergy list, history of present illness and physical findings on examination. The workup in this patient includes x-ray of the patient's left foot3 views The left foot x-ray (3 views) was interpreted by the radiologist. There is mild first MTP degenerative changes. There is small plantar heel spur. There is no acute fracture or dislocation. And there is no evidence of radiopaque foreign body. I will not be attempting to intervene surgically in this patient. Her tenderness has been present for 2 weeks has no evidence of any infection. There is no radiographic evidence of any radiopaque foreign body. I am recommending that she follows up with the manager java of her choice and that specialist can decide further management. Counseled pt/family regarding: diagnosis, need for follow-up, rad results Medical Desision Making - Diagnostic Testing Diagnostic test were ordered, analyzed, and reviewed by me: Yes Radiological Interpretation: Reviewed by me, Teleradiologist Report - Risk of complications Minimal Risk: Minimal risk of morbidity - Departure Departure Disposition: Home Clinical Impression: Pain of left great toe Condition: Stable Critical Care Time: No Referrals: DENISE APPIAH [Primary Care Provider] - Follow up/PCP as directed Additional Instructions: Use Tylenol and ibuprofen for pain control. May soak the left foot and Epsom salts twice a day for 48 to 72 hours. Call a manager java tomorrow morning, 01/22/2023, to make arrangements for follow-up appointment and for further management as indicated.
[2023-01-21 12:46] VITALS: BP 164/84; PULSE 73; TEMP 96.3; O2SAT 100
--- NOTE | 2023-01-21 13:32 | XRAY ---
Indication: Great toe pain. Glass foreign body. Comparison: None 3 nonweightbearing views left foot demonstrates mild 1st MTP degenerative changes and small plantar heel spur. No other bony, articular, or soft tissue abnormalities. No radiopaque foreign body.
[2023-01-21 14:07] VITALS: RESP 16
== END 2023-01-21 14:08 | disposition home or self-care (01) ==
LOC: ED 12:28
DX: M79.675 Pain in left toe(s) (principal); E78.5 Hyperlipidemia, unspecified; I10 Essential (primary) hypertension; Z79.85 Long-term (current) use of injectable non-insulin antidiabetic drugs; Z79.899 Other long term (current) drug therapy
CPT/HCPCS: 73630; 99282